=== PATIENT | female | born 1990 | race Caucasian/White ===

== ENCOUNTER 2023-07-12 02:03 | Outpatient (CLI) | payer BC, SELFPAY ==
[2023-07-12 08:04] LABS: ALT 28 U/L (14-59); AST 12 U/L (15-37); Albumin 3.8 g/dL (3.4-5.0); Alkaline Phosphatase 84 U/L (46-116); BUN 8 mg/dL (7-18); Bilirubin, Total 0.2 mg/dL (0.2-1.0); CREATININE 0.8 mg/dL (0.55-1.02); Calcium 8.8 mg/dL (8.5-10.1); Calculated LDL 123 mg/dL (<100); Chloride 100 mmol/L (98-107); Cholesterol 189 mg/dL (<200); Estimated GFR 100.96 (mL/min/1.73m2); Glucose 106 mg/dL (74-106); HDL Cholesterol 54 mg/dL (40-60); Potassium 3.9 mmol/L (3.5-5.1); Sodium 134 mmol/L (136-145); TSH (W/Ref FT4) 1.71 uIU/mL (0.36-3.74); Total Protein 7.7 g/dL (6.4-8.2); Triglyceride 64 mg/dL (<150)
== END 2023-07-12 02:04 | disposition home or self-care (01) ==
LOC: LBO 02:03
PROVIDERS: PCP Nurse Practitioner Adult Health; Visit Provider Nurse Practitioner Adult Health
DX: Z13.1 Encounter for screening for diabetes mellitus (principal); Z13.220 Encounter for screening for lipoid disorders; Z83.3 Family history of diabetes mellitus; E66.9 Obesity, unspecified
CPT/HCPCS: 36415; 80053; 80061; 84443

== ENCOUNTER 2023-07-26 15:49 | Outpatient (REF) | payer BC, SELFPAY ==
--- NOTE | 2023-07-26 15:15 | PAPFT_PTH ---
PATIENT: Alexandra Serrato LOC: [facility] U#:[id number] AGE/SX: 33/F ROOM: RE07/26/[address]: Yenni uLndy APRN : 1990 BED: DIS: 07/26/2023 SPEC #: [id number] RECD: 07/27/23 13:06 STATUS: YURIY PACHECO #: [id number] BELLA: 07/26/23 15:[address]: Yenni Lundy [facility] Cytology RECD BY: Nicolasa Malone Tissues: 1 - CX/ENDOCX FOR PAP SMEARS Procedures: PAP THIN PREP/[facility] Screening HPV DNA PROBE Comments: [id number]
== END 2023-07-26 15:50 | disposition home or self-care (01) ==
LOC: LBO 15:49
PROVIDERS: PCP Nurse Practitioner Adult Health; Visit Provider Nurse Practitioner Adult Health
DX: Z12.4 Encounter for screening for malignant neoplasm of cervix (principal); Z11.51 Encounter for screening for human papillomavirus (HPV)
CPT/HCPCS: 88142; 87624